=== PATIENT | female | born 1995 | race Caucasian/White ===

== ENCOUNTER 2024-04-19 09:15 | Emergency (ER) | payer OTHER ==
[~2024-04-19] VITALS: Ht 165.1 cm; Wt 61.2 kg
[2024-04-19 09:25] VITALS: BP 135/81; TEMP 99.3; O2SAT 99
[2024-04-19] MEDS ORDERED: TDAP [DIPH/PERTUSSIS/TET] 0.5 ML VIAL IM ONE (09:52)
[2024-04-19] MEDS: TDAP [DIPH/PERTUSSIS/TET] 0.5 ML VIAL IM ONE (10:01)
[2024-04-19] MEDS: BACI/NEOM/POLY B OINT PKT 1 UDPKT PACKET TP ONE (10:01)
[2024-04-19] MEDS ORDERED: IBUP-1955 PO (10:09)
[2024-04-19] MEDS ORDERED: AMOX-430 PO (10:09)
== END 2024-04-19 10:22 | disposition home or self-care (01) ==
LOC: ER 09:26
DX: S01.85XA Open bite of other part of head, initial encounter (principal); W54.0XXA Bitten by dog, initial encounter; Z91.010 Allergy to peanuts; Z91.013 Allergy to seafood; Y93.89 Activity, other specified; Y92.89 Other specified places as the place of occurrence of the external cause; Y99.8 Other external cause status
CPT/HCPCS: 99283; 90471; 90715; A4217